=== PATIENT | male | born 1990 | race Caucasian/White ===

== ENCOUNTER 2018-09-23 10:47 | Emergency (ER) | payer BC, OTHER ==
--- NOTE | 2018-09-23 11:57 | EDPHY ---
General Time Seen by Provider: 09/23/18 11:47 Narrative: CHIEF COMPLAINT: Left leg cellulitis HISTORY OF PRESENT ILLNESS: Patient presents by private vehicle with complaints of left leg cellulitis. He notes some redness to the left salmeron that started on Sunday night. It has been progressively worsening. It is moderately painful. Able to ambulate. He has had a subjective fever at home. He has had previous episode of cellulitis and MRSA infections, thus he has concern. He has no chest pain or shortness of breath. The pain left leg does, to the left medial thigh. No recent travel, trauma or surgery. No other associated complaints or modifying factors. MEDICAL/SURGICAL/SOCIAL HISTORY: Syringomyelia, recurrent cellulitis and MRSA REVIEW OF SYSTEMS: Ten systems reviewed and are negative unless otherwise noted in the HPI EXAMINATION: Vitals: Triage VS reviewed. General Appearance: Alert, no distress. Well-appearing. Head: normocephalic, atraumatic ENT: Pupils equal round reactive. EOM symmetric Cardiovascular: Regular rhythm. No murmur. Pulses are symmetric DP and PT 2+ . Good signs of perfusion left lower extremity. Neurological: A&O, light sensory symmetric, strength symmetric Skin: Warm and dry. Moderate area of cellulitis to the left leg involving the middle portion of the leg circumferentially. No fluctuance or induration. No necrosis or subcu emphysema. Extremities: Nontender, no pedal edema DIFFERENTIAL DIAGNOSES: Including but not limited to laceration, laceration complication, laceration foreign body, laceration with deep tissue injury MDM: 11:45 a.m. Left leg cellulitis involving the middle 3rd of the left leg circumferentially. No obvious abscess. No evidence of septic joint. I have ordered laboratory studies and x-ray. I have also ordered a DVT study. He does not meet SIRS criteria. He is well-appearing no acute distress. 12:50 p.m. Notified by radiologist Dr. Garg. No evidence of DVT on the left lower extremity ultrasound. X-ray shows swelling with no evidence of osteomyelitis. CBC is within normal limits with no leukocytosis. His ESR is negative. Patient re-evaluated. I notified him of the possible hardware failure of the screw in the left lower extremity. I do feel it is reasonable to discharge him home with oral antibiotics. Dr. Reza agrees. We discussed Bactrim and Keflex with this history of MRSA. We discuss light activity and elevation. We discussed ED precautions for any spreading of the cellulitis, fever, systemic feelings of illness. Comfortable this plan. I have also provided orthopedic referral at his request for his ongoing lower extremity complaints. I have answered all his questions. Discharged home stable condition. SUPERVISION: Patient was independently examined, but I discussed the case with my secondary supervising physician Dr. Reza ED Precautions: Worsening pain. Erythema, edema, cyanosis, pallor, paresthesia or anesthesia. - Diagnostics Imaging Results: Imaging Impressions Extremity Venous Study 09/23/18 11:58 Impression: No evidence of deep vein thrombosis. Findings discussed with Harish Candelario 09/23/2018 at 12:56. Tibia/Fibula X-Ray 09/23/18 11:58 Impression: 1. Pretibial soft tissue swelling. No subcutaneous gas or evidence of osteomyelitis. 2. Loosening long screw traversing the distal fibula and tibia. - History Smoking Status: Never smoked - Objective Vital Signs: Initial Vital Signs Temperature (C) 98.1 F 09/23/18 10:51 Heart Rate 92 09/23/18 10:51 Respiratory Rate 18 09/23/18 10:51 Blood Pressure 111/84 H 09/23/18 10:51 O2 Sat (%) 95 09/23/18 10:51 O2 Delivery Mode Room Air Allergies/Adverse Reactions: Penicillins Allergy (Verified 09/23/18 10:50) Home Medications: Medication Instructions Recorded Cephalexin [Keflex (*)] 500 mg PO QID #40 cap 09/23/18 Sulfamethox/Tmp 800/160 mg 1 tab PO BID 10 Days tab 09/23/18 [Bactrim Ds] Laboratory Results: Laboratory Results 09/23/18 12:11 09/23/18 12:11 09/23/18 09/23/18 12:11 12:11 WBC 6.40 10^3/uL 10^3/uL (3.80-9.50) RBC 4.51 10^6/uL 10^6/uL (4.40-6.38) Hgb 14.0 g/dL g/dL (13.7-17.5) Hct 39.5 % L % (40.0-51.0) MCV 87.6 fL fL (81.5-99.8) MCH 31.0 pg pg (27.9-34.1) MCHC 35.4 g/dL g/dL (32.4-36.7) RDW 12.2 % % (11.5-15.2) Plt Count 182 10^3/uL 10^3/uL (150-400) MPV 9.3 fL fL (8.7-11.7) Neut % (Auto) 68.7 % % (39.3-74.2) Lymph % (Auto) 18.0 % % (15.0-45.0) Hawkins % (Auto) 12.8 % % (4.5-13.0) Eos % (Auto) 0.0 % L % (0.6-7.6) Baso % (Auto) 0.3 % % (0.3-1.7) Nucleat RBC Rel Count 0.0 % % (0.0-0.2) Absolute Neuts (auto) 4.40 10^3/uL 10^3/uL (1.70-6.50) Absolute Lymphs (auto) 1.15 10^3/uL 10^3/uL (1.00-3.00) Absolute Monos (auto) 0.82 10^3/uL H 10^3/uL (0.30-0.80) Absolute Eos (auto) 0.00 10^3/uL L 10^3/uL (0.03-0.40) Absolute Basos (auto) 0.02 10^3/uL 10^3/uL (0.02-0.10) Absolute Nucleated RBC 0.00 10^3/uL 10^3/uL (0-0.01) Immature Gran % 0.2 % % (0.0-1.1) Immature Gran # 0.01 10^3/uL 10^3/uL (0.00-0.10) ESR 9 MM/HR MM/HR (0-15) Sodium 139 mEq/L mEq/L (135-145) Potassium 4.4 mEq/L mEq/L (3.5-5.2) Chloride 105 mEq/L mEq/L (97-110) Carbon Dioxide 23 mEq/l mEq/l (22-31) Anion Gap 11 mEq/L mEq/L (6-14) BUN 14 mg/dL mg/dL (7-23) Creatinine 0.8 mg/dL mg/dL (0.7-1.3) Estimated GFR > 60 Glucose 96 mg/dL mg/dL (70-100) Calcium 8.7 mg/dL mg/dL (8.5-10.4) Departure - Departure Disposition: Home, Routine, Self-Care Clinical Impression: Cellulitis, leg Qualifiers: Laterality: left Qualified Code(s): L03.116 - Cellulitis of left lower limb Condition: Good Instructions: Cellulitis (ED) Additional Instructions: 1. Bactrim twice daily By mouth for 10 days 2. Keflex 4 times daily for 10 days 3. Follow up with Orthopedics and primary care physician for definitive care 4. ED precautions for worsening symptoms, fever, systemic illness Referrals: Arcelia Harding MD [Medical Doctor] - As per Instructions Kwadwo Ovalles MD [Medical Doctor] - As per Instructions Sanket Danielle MD [Medical Doctor] - As per Instructions Prescriptions: Cephalexin [Keflex (*)] 500 mg PO QID #40 cap Sulfamethox/Tmp 800/160 mg [Bactrim Ds] 1 tab PO BID 10 Days tab
[2018-09-23 12:25] LABS: PLATELET COUNT 182 10^3/uL (150-400)
[2018-09-23 13:01] VITALS: BP 130/77
== END 2018-09-23 13:20 | disposition home or self-care (01) ==
DX: M79.89 Other specified soft tissue disorders (principal); M79.662 Pain in left lower leg; R23.8 Other skin changes; T84.298A Other mechanical complication of internal fixation device of other bones, initial encounter

== ENCOUNTER → 2018-10-23 | Outpatient (CLI) | payer OTHER | LOC: FIMAGING 18:58 | PROVIDERS: ATTEND Orthopaedic Surgery Foot and Ankle Surgery | DX: Z98.1 Arthrodesis status (principal) ==